=== PATIENT | male | born 1955 | race Caucasian/White ===

== ENCOUNTER 2024-01-02 06:24 | Day surgery (SDC) | payer MEDICARE, OTHER ==
[2024-01-01 09:55] VITALS: BMI 23.6
[2024-01-02] MEDS ORDERED: PROPOFOL 0 ML ONE (07:25)
[2024-01-02 07:46] VITALS: BP 120/69; TEMP 98.6
== END 2024-01-02 07:35 | disposition home or self-care (01) ==
LOC: CSHSDC 06:24
PROVIDERS: ATTEND Specialist
DX: I48.4 Atypical atrial flutter (principal); I25.10 Atherosclerotic heart disease of native coronary artery without angina pectoris; I47.10 Supraventricular tachycardia, unspecified; Z53.9 Procedure and treatment not carried out, unspecified reason; I10 Essential (primary) hypertension; I34.0 Nonrheumatic mitral (valve) insufficiency; I50.30 Unspecified diastolic (congestive) heart failure; I11.0 Hypertensive heart disease with heart failure; G47.30 Sleep apnea, unspecified; E78.2 Mixed hyperlipidemia; E87.6 Hypokalemia; I25.2 Old myocardial infarction; Z98.890 Other specified postprocedural states; Z79.899 Other long term (current) drug therapy; Z79.82 Long term (current) use of aspirin; Z79.01 Long term (current) use of anticoagulants; Z86.73 Personal history of transient ischemic attack (TIA), and cerebral infarction without residual deficits
CPT/HCPCS: 93005; 93010; J2704

== ENCOUNTER 2024-01-13 12:31 | Observation (INO) | payer MEDICARE, OTHER ==
[2024-01-13 13:35] LABS: #Basophils 0.06 10x3/uL (0.0-0.2); #Eosinphils 0.55 10x3/uL (0.0-0.5); #Monocytes 0.93 10x3/uL (0.0-1.1); #Neutrophils 7.32 10x3/uL (1.5-8.4); %Basophils 0.6 % (0.0-2.0); %Eosinophils 5.4 % (0.0-6.0); %Lymphocytes 13.3 % (18.0-47.0); %Monocytes 9.1 % (0.0-10.0); %Neutrophils 71.2 % (40.0-75.0); Hemoglobin 11.5 g/dL (13.5-17.5); Mean Corpuscular HGB CONC 31.1 g/dL (32.0-36.0); Mean Corpuscular Hemoglobin 26.3 pg (27.0-33.0); Mean Corpuscular Volume 84.7 fL (81.2-95.1); Mean Platelet Volume 9.7 fL (7.4-10.4); Platelet Count 217 10x3/uL (150-450); RBC Distribution Width 14.8 % (11.5-14.5); Red Blood Cell (RBC) Count 4.37 10x6/uL (4.32-5.72); White Blood Cell (WBC) Count 10.3 10x3/uL (3.5-10.5)
[2024-01-13 13:52] LABS: ALT (SGPT) 29 U/L (8-55); AST (SGOT) 16 U/L (5-34); Albumin 3.5 g/dL (3.4-4.8); Alkaline Phosphatase 52 U/L (40-110); Anion Gap 15 mmol/L (10-20); BUN (Urea Nitrogen) 20 mg/dL (8.4-25.7); Bilirubin, Total 0.7 mg/dL (0.2-1.2); Calc. Creatinine Clearance 0 mL/min (70-130); Calcium 8.6 mg/dL (7.8-10.44); Carbon Dioxide 22 mmol/L (23-31); Chloride 103 mmol/L (98-107); Estimated GFR 52; Globulin 3.1 g/dL (2.4-3.5); Glucose 80 mg/dL (80-115); Magnesium 1.9 mg/dL (1.6-2.6); Potassium 3.2 mmol/L (3.5-5.1); Protein, Total 6.6 g/dL (5.8-8.1); Sodium 137 mmol/L (136-145)
[2024-01-13 13:58] LABS: Troponin I 0.063 ng/mL (< 0.028)
[2024-01-13 14:12] LABS: Phosphorus 2.7 mg/dL (2.3-4.7)
[2024-01-13] MEDS ORDERED: Furosemide 40 MG (4 mL) VIAL ONE (14:20)
[2024-01-13] MEDS ORDERED: Potassium Chloride 20 MEQ TAB ONE (14:37)
[2024-01-13 16:35] VITALS: BMI 25.8
[2024-01-13] MEDS ORDERED: Senokot S 8.6-50 MG TAB PO PRN (17:00)
[2024-01-13] MEDS ORDERED: Acetaminophen 325 MG TAB PO PRN (17:00)
[2024-01-13 17:46] LABS: Troponin I 0.066 ng/mL (< 0.028)
[2024-01-13] MEDS: ALPRAZolam 0.5 MG TAB PO SCH (22:24)
[2024-01-13] MEDS: Naproxen 500 MG TAB PO SCH (22:25)
[2024-01-13] MEDS: Rosuvastatin 10 MG TAB PO SCH (22:25)
[2024-01-13] MEDS: rOPINIRole HCl 2 MG TAB PO SCH (22:26)
[2024-01-13 22:42] LABS: Troponin I 0.067 ng/mL (< 0.028)
[2024-01-14 03:52] LABS: #Basophils 0.06 10x3/uL (0.0-0.2); #Eosinphils 0.66 10x3/uL (0.0-0.5); #Monocytes 0.84 10x3/uL (0.0-1.1); #Neutrophils 5.83 10x3/uL (1.5-8.4); %Basophils 0.7 % (0.0-2.0); %Eosinophils 7.4 % (0.0-6.0); %Lymphocytes 17.4 % (18.0-47.0); %Monocytes 9.4 % (0.0-10.0); %Neutrophils 64.9 % (40.0-75.0); Hematocrit 36.5 % (38.8-50.0); Hemoglobin 11.1 g/dL (13.5-17.5); Mean Corpuscular HGB CONC 30.4 g/dL (32.0-36.0); Mean Corpuscular Hemoglobin 25.9 pg (27.0-33.0); Mean Corpuscular Volume 85.3 fL (81.2-95.1); Mean Platelet Volume 9.9 fL (7.4-10.4); Platelet Count 214 10x3/uL (150-450); RBC Distribution Width 14.8 % (11.5-14.5); Red Blood Cell (RBC) Count 4.28 10x6/uL (4.32-5.72)
[2024-01-14 04:10] LABS: Anion Gap 14 mmol/L (10-20); BUN (Urea Nitrogen) 21 mg/dL (8.4-25.7); Calc. Creatinine Clearance 51 mL/min (70-130); Calcium 9.1 mg/dL (7.8-10.44); Carbon Dioxide 27 mmol/L (23-31); Chloride 99 mmol/L (98-107); Estimated GFR 49; Glucose 90 mg/dL (80-115); Potassium 3.4 mmol/L (3.5-5.1); Sodium 137 mmol/L (136-145)
[2024-01-14] MEDS: Potassium Chloride 20 MEQ TAB PO SCH ×2 (09:20→16:37)
[2024-01-14] MEDS: Polyethylene Glycol 3350 17 GM Packet PO SCH (09:20)
[2024-01-14] MEDS: Magnesium Oxide 400 MG TAB PO SCH (09:21)
[2024-01-14] MEDS: Pantoprazole DR 40 MG TAB PO SCH (09:21)
[2024-01-14 11:40] VITALS: TEMP 98
[2024-01-14] MEDS ORDERED: Potassium Bicarbonate/Cit Ac 20 MEQ TAB PO SCH (15:30)
[2024-01-14] MEDS: predniSONE 20 MG TAB PO SCH (16:37)
[2024-01-14] MEDS: Doxycycline 100 MG CAP PO SCH (17:26)
[2024-01-14 18:10] VITALS: BP 128/76
[2024-01-15] MEDS ORDERED: Aspirin 81 mg Enteric Coated Tablet PO SCH (09:00)
== END 2024-01-14 18:08 | disposition home or self-care (01) ==
LOC: CSHERS 12:31 → CSHTELE 16:10
PROVIDERS: ADMIT Internal Medicine; ATTEND Internal Medicine
PROC: B246YZZ Ultrasonography of Right and Left Heart using Other Contrast (ICD-10-PCS; principal; 2024-01-13)
DX: I48.0 Paroxysmal atrial fibrillation (principal); I47.10 Supraventricular tachycardia, unspecified; R06.02 Shortness of breath; E78.5 Hyperlipidemia, unspecified; I13.0 Hypertensive heart and chronic kidney disease with heart failure and stage 1 through stage 4 chronic kidney disease, or unspecified chronic kidney disease; N18.9 Chronic kidney disease, unspecified; I50.30 Unspecified diastolic (congestive) heart failure; D63.1 Anemia in chronic kidney disease; I48.91 Unspecified atrial fibrillation; I48.92 Unspecified atrial flutter; I34.2 Nonrheumatic mitral (valve) stenosis; R60.0 Localized edema; I25.2 Old myocardial infarction; I25.10 Atherosclerotic heart disease of native coronary artery without angina pectoris; R06.09 Other forms of dyspnea; R79.89 Other specified abnormal findings of blood chemistry; G47.33 Obstructive sleep apnea (adult) (pediatric); Z79.899 Other long term (current) drug therapy; Z98.890 Other specified postprocedural states; Z88.8 Allergy status to other drugs, medicaments and biological substances; Z95.1 Presence of aortocoronary bypass graft
CPT/HCPCS: 71045; 76770; 80048; 83735; 83880; 84100; 84484 ×2; 85025; 93005; 93306; 96374; 99285; G0378 ×3; J1940; 36415; 80053; 84443; J7512